=== PATIENT | female | born 1995 | race Caucasian/White ===

== ENCOUNTER 2017-01-28 13:14 | Emergency (ER) | payer MEDICAID, OTHER ==
[~2017-01-28] VITALS: Ht 167.6 cm; Wt 67.0 kg
[~2017-01-28 13:14] MED LIST: FERR1TAB36 PO; NORE1TAB60 PO
[2017-01-28 13:16] VITALS: BP 125/90; PULSE 68; RESP 20; TEMP 97.7; O2SAT 98
[2017-01-28 13:30] VITALS: BP 113/89; PULSE 73; RESP 17; O2SAT 99
--- NOTE | 2017-01-28 13:38 | PD ---
HPI Chief Complaint: Tuck Pointer Problem/Complaint Time Seen by Provider: 13:38 Travel History International Travel<30 days: No Contact w/Intl Traveler<30days: No Traveled to known affect area: No History of Present Illness HPI 21-year-old female presents to the emergency Department with complaints of continued intermittent vaginal bleeding since July. Reports no days of bleeding, lady's bleeding, and it is bleeding. Woke up this morning with heavy bleeding which has lightened now. She was seen in September for retained tampon and vaginal bleeding, and was given a prescription for control to help control the vaginal bleeding. She said she did not want to start the control and she threw the prescriptions away. She has not followed up outpatient since being seen last. She reports feeling weak and fatigued. Denies fever, chills, nausea, vomiting, abdominal pain. Denies shortness of breath or chest pain. Denies vaginal discharge, odor, itch, lesions. Reports pelvic cramping that is intermittent; denies at this time. Denies dysuria. Unknown if . Denies exposure to STDs. Using condoms intermittently for contraception. History of thalassemia. No known allergies. No established primary care provider. [facility] Past Medical History Anemia: Yes Immunizations Current: Yes Influenza Vaccination: No ?: Unknown Past Surgical History Surgical History: No Previous Surgery Social History Alcohol Use: Yes (SOCIALLY) Tobacco Use: Yes Substance Use: Yes (MARIJUANA) Allergies-Medications (Allergen,Severity, Reaction): Coded Allergies: No Known Allergies (Unverified , 01/28/17) Reported Meds & Prescriptions Reported Meds & Active Scripts Active Provera (Medroxyprogesterone Acetate) 10 Mg Tab 10 Mg PO DAILY 10 Days Start day 16 Iron (Ferrous Sulfate) 325 Mg Tab 325 Mg PO DAILY Take Review of Systems Except as stated in HPI: all other systems reviewed are Neg Physical Exam Narrative GENERAL: Well-nourished, well-developed female patient, in no acute distress, ambulatory SKIN: Warm and dry. HEAD: Atraumatic. Normocephalic. EYES: Pupils equal and round. No scleral icterus. No injection or drainage. ENT: Mucous membranes pink and moist. NECK: Trachea midline. No lymphadenopathy. CARDIOVASCULAR: Regular rate and rhythm. No murmur appreciated. RESPIRATORY: No accessory muscle use. Clear to auscultation. Breath sounds equal bilaterally. GASTROINTESTINAL: Abdomen soft, non-tender, nondistended. Bilateral pelvic region nontender to palpation. Hepatic and splenic margins not palpable. No guarding, rigidity, rebound tenderness. GENITAL: No vaginal lesions noted. Dark red blood noted at the vagina. BACK: No CVA tenderness. MUSCULOSKELETAL: No obvious deformities. No clubbing. No cyanosis. No edema. NEUROLOGICAL: Awake and alert. No obvious cranial nerve deficits. Motor grossly within normal limits. Normal speech. PSYCHIATRIC: Appropriate mood and affect; insight and judgment normal. Data Data Last Documented VS Vital Signs Date Time Temp Pulse Resp B/P Pulse Ox O2 Delivery O2 Flow Rate FiO2 01/28/17 13:30 73 17 113/89 99 Room Air 01/28/17 13:16 97.7 Orders Complete Blood Count With Diff (01/28/17 13:38) Prothrombin Time / Inr (Pt) (01/28/17 13:38) Act Partial Throm Time (Ptt) (01/28/17 13:38) Ed Urine Pregnancytest Poc (01/28/17 13:38) Sodium Chlor 0.9% 1000 Ml Inj (Ns 1000 M (01/28/17 14:09) Labs Laboratory Tests Test 01/28/17 13:55 White Blood Count 10.1 TH/MM3 Red Blood Count 4.33 MIL/MM3 Hemoglobin 13.3 GM/DL Hematocrit 39.1 % Mean Corpuscular Volume 90.4 FL Mean Corpuscular Hemoglobin 30.7 PG Mean Corpuscular Hemoglobin 34.0 % Concent Red Cell Distribution Width 13.6 % Platelet Count 219 TH/MM3 Mean Platelet Volume 8.7 FL Neutrophils (%) (Auto) 59.4 % Lymphocytes (%) (Auto) 31.8 % Monocytes (%) (Auto) 7.8 % Eosinophils (%) (Auto) 0.6 % Basophils (%) (Auto) 0.4 % Neutrophils # (Auto) 6.0 TH/MM3 Lymphocytes # (Auto) 3.2 TH/MM3 Monocytes # (Auto) 0.8 TH/MM3 Eosinophils # (Auto) 0.1 TH/MM3 Basophils # (Auto) 0.0 TH/MM3 CBC Comment DIFF FINAL Differential Comment Prothrombin Time 10.7 SEC Prothromb Time International 1.0 RATIO Ratio Activated Partial 26.6 SEC Thromboplast Time MDM Medical Decision Making Medical Screen Exam Complete: Yes Emergency Medical Condition: Yes Medical Record Reviewed: Yes Differential Diagnosis Dysmenorrhea, menorrhagia, vaginal bleeding Narrative Course 21-year-old female with vaginal bleeding since July. She was previously seen in September for retained tampon and was given perception for control to control the bleeding, which the patient never filled and threw away. She has not followed up outpatient. Has history of anemia. Does not take iron as she is supposed to. Urine negative. IV started obtained. Patient placed on cardiopulmonary monitor. 1 L normal saline fluid bolus ordered. CBC , coags ordered. The plan is to treat the patient outpatient with 10 days of Provera. Patient denies tobacco use. 1419: CBC and coags unremarkable. Provera prescribed for home. Instructed patient to follow up with gynecology. Patient verbalizes understanding and agreement with treatment plan. Patient is medically cleared and stable for discharge. Discussed reasons to return to the emergency department. Instructed patient to follow up with primary care provider. Patient agrees with treatment plan. The patients vital signs are stable and the patient is stable for outpatient follow-up and treatment. Patient discharged home, stable and in no acute distress. 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 Logistics Coordinator Primary Care Physician Patient Instructions: Dysmenorrhea (ED), General Instructions, Menorrhagia (ED) Departure Forms: Tests/Procedures, Work Release Enter return to work date: Jan 29, 2017 Additional Instructions: Take Provera as prescribed Follow-up with gynecology Follow-up with primary care provider Return to the emergency department immediately with worsening of symptoms Med/Other Pt SpecificInfo: Prescription(s) given Scripts Medroxyprogesterone Acetate (Provera)10 Mg Tab10 Mg PO DAILY 10 Days Ref 0 Start day 16 Prov:Carline Harper 01/28/17 Disposition: 01 DISCHARGE HOME Condition: Stable Carline Harper Jan 28, 2017 13:38
[2017-01-28] MEDS ORDERED: PROV10TA PO (13:59)
[2017-01-28 14:06] LABS: BASOPHIL % 0.4 % (0.0-2.0); EOSINOPHIL # 0.1 TH/MM3 (0-0.4); EOSINOPHIL % 0.6 % (0.0-4.0); HEMATOCRIT 39.1 % (35.0-46.0); HEMO FLAGS DIFF FINAL; LYMPH % 31.8 % (9.0-44.0); LYMPHOCYTE # 3.2 TH/MM3 (1.0-4.8); MEAN CELL VOLUME 90.4 FL (80.0-100.0); MEAN CORPUSCULAR HEMOGLOBIN 30.7 PG (27.0-34.0); MONO % 7.8 % (0.0-8.0); NEUT % 59.4 % (16.0-70.0); PLATELET COUNT 219 TH/MM3 (150-450); RED BLOOD COUNT 4.33 MIL/MM3 (4.00-5.30); RED CELL DISTRIBUTION WIDTH 13.6 % (11.6-17.2); WHITE BLOOD COUNT 10.1 TH/MM3 (4.0-11.0)
[2017-01-28] MEDS ORDERED: SODIUM CHLOR 0.9% 1000 ML INJ 1,000 ML IV SCH (14:09)
[2017-01-28 14:16] LABS: APTT (PATIENT) 26.6 SEC (24.3-30.1); PROTHROMBIN TIME - PATIENT 10.7 SEC (9.8-11.6)
== END 2017-01-28 15:49 | disposition home or self-care (01) ==
LOC: NEPA 13:14
DX: N93.9 Abnormal uterine and vaginal bleeding, unspecified (principal); D64.9 Anemia, unspecified; Z72.0 Tobacco use; F12.10 Cannabis abuse, uncomplicated
CPT/HCPCS: 84703; 85025; 85610; 85730; 96360; 96361; 99284; J7030

== ENCOUNTER 2017-06-20 12:45 | Emergency (ER) | payer SELFPAY ==
[~2017-06-20] VITALS: Ht 167.6 cm; Wt 65.0 kg
[~2017-06-20 12:45] MED LIST changes: -NORE1TAB60 PO; +PROV10TA PO
[2017-06-20 12:47] VITALS: BP 132/72; PULSE 65; RESP 16; TEMP 98.4; O2SAT 100
--- NOTE | 2017-06-20 13:37 | PD ---
Physical Exam Time Seen by Provider: 13:32 Narrative 21yo F c/o lower abd cramping/pain and vaginal bleeding since this morning. Reports spotting for about one month; doesn't not know when actual LMP was. + nausea w/o vomiting. Denies fever. Hx of vaginal bleeding and took Provera. Hx of retained FB. Patient seen in triage. VS reviewed. Patient awaiting bed placement. Data Data Last Documented VS Vital Signs Date Time Temp Pulse Resp B/P Pulse Ox O2 Delivery O2 Flow Rate FiO2 06/20/17 12:47 98.4 65 16 132/72 100 MDM Supervised Visit with NATHALIA: Carline Coello Jun 20, 2017 13:37
== END 2017-06-20 15:28 | disposition left against medical advice (07) ==
LOC: NED 12:45
DX: R10.30 Lower abdominal pain, unspecified (principal)
CPT/HCPCS: 99281

== ENCOUNTER 2017-06-22 11:26 | Emergency (ER) | payer MEDICAID ==
[~2017-06-22] VITALS: Ht 167.6 cm; Wt 66.5 kg
[2017-06-22 11:28] VITALS: BP 129/74; PULSE 61; RESP 14; TEMP 98.2; O2SAT 99
[2017-06-22] MEDS ORDERED: ONDANSETRON HCL 4 MG/2 ML VIAL IVP ONE (11:45)
[2017-06-22] MEDS ORDERED: MORPHINE SULFATE 4 MG/ML INJ IV PUSH ONE (11:45)
[2017-06-22] MEDS ORDERED: SODIUM CHLORID 0.9% 500 ML INJ 500 ML IV ONE (11:45)
[2017-06-22] MEDS ORDERED: KETOROLAC TROMETHAMINE 30 MG/ML (IVP) VIAL IV PUSH ONE (11:45)
--- NOTE | 2017-06-22 11:49 | PD ---
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 The patient has a history of abnormal vaginal bleeding that started in April 2016 after she started Depo-Provera. The patient discontinued Depakote treatment of July 2016 and has had abnormal vaginal bleeding with occasional spotting. The patient states she was spotting 2 weeks ago, had no bleeding for 2 weeks, and then woke up today with lower abdominal pain, cramping, and heavy vaginal bleeding which she describes as dark red blood with visible clots. She is sexually active, denies . The patient states she was treated a short time ago with Provera for breakthrough vaginal bleeding. She does have a history of mild anemia and thalassemia. The patient does not currently have a director corporate. She denies any fever, chills, sweats, nausea, vomiting, or dysuria. She denies any concurrent vaginal discharge. [facility] Past Medical History Anemia: Yes Immunizations Current: Yes ?: Unknown LMP: 06/22/17 Social History Alcohol Use: No Tobacco Use: No Substance Use: No Allergies-Medications (Allergen,Severity, Reaction): Coded Allergies: No Known Allergies (Unverified , 01/28/17) Reported Meds & Prescriptions Reported Meds & Active Scripts Active Provera (Medroxyprogesterone Acetate) 10 Mg Tab 10 Mg PO DAILY 10 Days Start day 16 Iron (Ferrous Sulfate) 325 Mg Tab 325 Mg PO DAILY Take Review of Systems Except as stated in HPI: all other systems reviewed are Neg General / Constitutional: No: Fever HENT: No: Lightheadedness Cardiovascular: No: Chest Pain or Discomfort, Dyspnea on exertion Respiratory: No: Shortness of Breath Gastrointestinal: No: Nausea, Vomiting, Abdominal Pain Genitourinary: Positive: Pelvic Pain, Dysmenorrhea, Menorrhagia, Metorrhagia, Vaginal Bleeding Skin: No Rash Physical Exam Narrative GENERAL: Awake, alert, pleasant 21-year-old female who appears her stated age and is in no acute respiratory distress. SKIN: Focused skin assessment warm/dry. HEAD: Atraumatic. Normocephalic. EYES: No injection or drainage. ENT: No nasal bleeding or discharge. Mucous membranes pink and moist. NECK: Trachea midline. No JVD. CARDIOVASCULAR: Regular rate and rhythm. No murmur appreciated. RESPIRATORY: No accessory muscle use. Clear to auscultation. Breath sounds equal bilaterally. GASTROINTESTINAL: Abdomen soft, minimal suprapubic tenderness. Back: No CVA tenderness. Genitourinary: The exam was performed in the presence of a female nurse. External examination reveals no rashes or lesions. Speculum examination reveals scant brown to yellow discharge in the vaginal vault. Wet prep and gonorrhea/chlamydia were sent to lab. Cervical os is closed. No cervical motion tenderness or adnexal tenderness. MUSCULOSKELETAL: No obvious deformities. No clubbing. No cyanosis. No edema. NEUROLOGICAL: Awake and alert. No obvious cranial nerve deficits. Motor grossly within normal limits. Normal speech. PSYCHIATRIC: Appropriate mood and affect; insight and judgment normal. Data Data Last Documented VS Vital Signs Date Time Temp Pulse Resp B/P Pulse Ox O2 Delivery O2 Flow Rate FiO2 06/22/17 11:28 98.2 61 14 129/74 99 Orders Complete Blood Count With Diff (06/22/17 11:42) Urinalysis - C+S If Indicated (06/22/17 11:42) Ondansetron Inj (Zofran Inj) (06/22/17 11:45) Ed Urine Pregnancytest Poc (06/22/17 11:42) Morphine Inj (Morphine Inj) (06/22/17 11:45) Ketorolac Inj (Toradol Inj) (06/22/17 11:45) Sodium Chlorid 0.9% 500 Ml Inj (Ns 500 M (06/22/17 11:45) Gc And Chlamydia Pcr (06/22/17 12:09) Wet Prep Profile (06/22/17 12:09) Labs Laboratory Tests Test 06/22/17 06/22/17 11:40 12:05 White Blood Count 7.1 TH/MM3 Red Blood Count 4.61 MIL/MM3 Hemoglobin 14.5 GM/DL Hematocrit 43.3 % Mean Corpuscular Volume 93.8 FL Mean Corpuscular Hemoglobin 31.5 PG Mean Corpuscular Hemoglobin 33.6 % Concent Red Cell Distribution Width 13.6 % Platelet Count 200 TH/MM3 Mean Platelet Volume 8.7 FL Neutrophils (%) (Auto) 54.7 % Lymphocytes (%) (Auto) 34.3 % Monocytes (%) (Auto) 9.1 % Eosinophils (%) (Auto) 1.4 % Basophils (%) (Auto) 0.5 % Neutrophils # (Auto) 3.9 TH/MM3 Lymphocytes # (Auto) 2.4 TH/MM3 Monocytes # (Auto) 0.6 TH/MM3 Eosinophils # (Auto) 0.1 TH/MM3 Basophils # (Auto) 0.0 TH/MM3 CBC Comment DIFF FINAL Differential Comment Urine Color YELLOW Urine Turbidity HAZY Urine pH 6.5 Urine Specific [place] 1.023 Urine Protein TRACE mg/dL Urine Glucose (UA) NEG mg/dL Urine Ketones NEG mg/dL Urine Occult Blood MOD Urine Nitrite NEG Urine Bilirubin NEG Urine Urobilinogen LESS THAN 2.0 MG/DL Urine Leukocyte Esterase MOD Urine RBC 2 /hpf Urine WBC 4 /hpf Urine Squamous Epithelial 11 /hpf Cells Urine Mucus FEW /lpf Microscopic Urinalysis Comment CULT NOT INDICATED Clue Cells (Wet Prep) PRESENT Vaginal Trichomonas (Wet Prep) NONE SEEN Vaginal Yeast (Wet Prep) NONE SEEN MDM Medical Decision Making Medical Screen Exam Complete: Yes Emergency Medical Condition: Yes Medical Record Reviewed: Yes Interpretation(s) Laboratory Tests Test 06/22/17 06/22/17 11:40 12:05 White Blood Count 7.1 TH/MM3 Red Blood Count 4.61 MIL/MM3 Hemoglobin 14.5 GM/DL Hematocrit 43.3 % Mean Corpuscular Volume 93.8 FL Mean Corpuscular Hemoglobin 31.5 PG Mean Corpuscular Hemoglobin 33.6 % Concent Red Cell Distribution Width 13.6 % Platelet Count 200 TH/MM3 Mean Platelet Volume 8.7 FL Neutrophils (%) (Auto) 54.7 % Lymphocytes (%) (Auto) 34.3 % Monocytes (%) (Auto) 9.1 % Eosinophils (%) (Auto) 1.4 % Basophils (%) (Auto) 0.5 % Neutrophils # (Auto) 3.9 TH/MM3 Lymphocytes # (Auto) 2.4 TH/MM3 Monocytes # (Auto) 0.6 TH/MM3 Eosinophils # (Auto) 0.1 TH/MM3 Basophils # (Auto) 0.0 TH/MM3 CBC Comment DIFF FINAL Differential Comment Urine Color YELLOW Urine Turbidity HAZY Urine pH 6.5 Urine Specific [place] 1.023 Urine Protein TRACE mg/dL Urine Glucose (UA) NEG mg/dL Urine Ketones NEG mg/dL Urine Occult Blood MOD Urine Nitrite NEG Urine Bilirubin NEG Urine Urobilinogen LESS THAN 2.0 MG/DL Urine Leukocyte Esterase MOD Urine RBC 2 /hpf Urine WBC 4 /hpf Urine Squamous Epithelial 11 /hpf Cells Urine Mucus FEW /lpf Microscopic Urinalysis Comment CULT NOT INDICATED Clue Cells (Wet Prep) PRESENT Vaginal Trichomonas (Wet Prep) NONE SEEN Vaginal Yeast (Wet Prep) NONE SEEN Differential Diagnosis Differential diagnosis includes dysmenorrhea, dysfunctional uterine bleeding, , ectopic , vaginal bleeding. Narrative Course IV was established, labs were drawn and sent, and the patient was placed on cardiac telemetry monitoring and continuous pulse oximetry monitoring. Bedside UA test was obtained. CBC was sent to lab. A pelvic exam was completed in the presence of a female nurse. Wet prep and gonorrhea/chlamydia PCR were sent to lab. Bedside UA test was negative. Hemoglobin is within normal limits. Wet prep is positive for clue cells, patient will be treated for bacterial vaginosis. Patient is stable for outpatient follow-up with a director corporate. Diagnosis Primary Impression: Bacterial vaginosis Additional Impression: Vaginal bleeding Patient Instructions: General Instructions Additional Instructions: Medications as directed. Follow-up with her director corporate. Return if symptoms worsen or progress. No drinking alcohol while taking Flagyl. Med/Other Pt SpecificInfo: Prescription(s) given Scripts Ibuprofen 600 Mg [id number] Mg PO Q6H PRN (Pain/Inflammation) #20 TAB Ref 0 Prov:Sherwin Suarez MD 06/22/17 Metronidazole (Flagyl)500 Mg [id number] Mg PO BID 7 Days Ref 0 Prov:Sherwin Suarez MD 06/22/17 Disposition: 01 DISCHARGE HOME Condition: Stable Sherwin Suarez MD Jun 22, 2017 11:49
[2017-06-22 12:06] LABS: AUTOMATED NEUTROPHIL # 3.9 TH/MM3 (1.8-7.7); BASOPHIL % 0.5 % (0.0-2.0); EOSINOPHIL # 0.1 TH/MM3 (0-0.4); EOSINOPHIL % 1.4 % (0.0-4.0); HEMATOCRIT 43.3 % (35.0-46.0); HEMO FLAGS DIFF FINAL; LYMPH % 34.3 % (9.0-44.0); LYMPHOCYTE # 2.4 TH/MM3 (1.0-4.8); MEAN CELL VOLUME 93.8 FL (80.0-100.0); MEAN CORPUSCULAR HEMOGLOBIN 31.5 PG (27.0-34.0); MEAN CORPUSCULAR HGB CONC 33.6 % (32.0-36.0); MONO % 9.1 % (0.0-8.0); NEUT % 54.7 % (16.0-70.0); PLATELET COUNT 200 TH/MM3 (150-450); RED BLOOD COUNT 4.61 MIL/MM3 (4.00-5.30); RED CELL DISTRIBUTION WIDTH 13.6 % (11.6-17.2); WHITE BLOOD COUNT 7.1 TH/MM3 (4.0-11.0)
[2017-06-22 12:14] LABS: BLOOD, URINE MOD (NEG); COMMENT (UR) CULT NOT INDICATED; CULTURE IF INDICATED CULT NOT INDICATED; GLUCOSE,URINE NEG (NEG); KETONE, URINE NEG (NEG); MUCUS URINE FEW /lpf (OCC); NITRITE,URINE NEG (NEG); PH, URINE 6.5 (5.0-8.5); SQUAMOUS EPITHELIAL CELL URINE 11 /hpf (0-5); URINE COLOR YELLOW (YELLW/STRAW)
[2017-06-22] MEDS ORDERED: IBUP-232 PO (12:49)
[2017-06-22] MEDS ORDERED: METR-1 PO (12:49)
[2017-06-22 15:45] LABS: CHLAMYDIA PCR NOT DETECTED (NOT DETECT); NEISSERIA PCR NOT DETECTED (NOT DETECT)
== END 2017-06-22 13:17 | disposition home or self-care (01) ==
LOC: NEPD 11:26
DX: N76.0 Acute vaginitis (principal); N93.9 Abnormal uterine and vaginal bleeding, unspecified
CPT/HCPCS: 81001; 84703; 85025; 87210; 87491; 87591; 96374; 96375; 99284; J1885; J2405; J7040

== ENCOUNTER 2017-07-21 15:50 | Emergency (ER) | payer MEDICAID ==
[~2017-07-21] VITALS: Ht 167.6 cm; Wt 65.0 kg
[~2017-07-21 15:50] MED LIST changes: +IBUP-232 PO; +METR-1 PO
[2017-07-21 15:52] VITALS: BP 134/63; PULSE 71; RESP 14; TEMP 97.8; O2SAT 100
--- NOTE | 2017-07-21 16:01 | PD ---
HPI Chief Complaint: Fall Time Seen by Provider: 16:00 Travel History International Travel<30 days: No Contact w/Intl Traveler<30days: No Traveled to known affect area: No History of Present Illness HPI 21-year-old female presents the emergency department via POV status post fall this morning. Patient states she got up from sleeping and felt dizzy and fell bumping her left anterior lateral thigh. She currently does not feel dizzy or weak at this time. She is complaining of left lower back pain now that extends into the left hip and lower leg. Patient has no history of this in the past. Patient's last menstrual period was June 26. She denies . She has a history of beta thalassemia. No other injury is reported. She denies headache, neck pain, or other pain. Back pain is approximately 6 out of 10. It is worse with movement and ambulation. She has no known drug allergies. PFSH Past Medical History Anemia: Yes Immunizations Current: Yes ?: Not Social History Alcohol Use: No Tobacco Use: No Substance Use: No Allergies-Medications (Allergen,Severity, Reaction): Coded Allergies: No Known Allergies (Unverified , 01/28/17) Reported Meds & Prescriptions Reported Meds & Active Scripts Active Flexeril (Cyclobenzaprine HCl) 10 Mg Tab 10 Mg PO TID Ibuprofen 600 Mg Tab 600 Mg PO Q6H PRN Review of Systems Except as stated in HPI: all other systems reviewed are Neg General / Constitutional: No: Fever Eyes: No: Visual changes HENT: Positive: Lightheadedness, No: Headaches, Vertigo, Sore Throat, Rhinitis , Rhinorrhea Cardiovascular: No: Chest Pain or Discomfort Respiratory: No: Shortness of Breath Gastrointestinal: No: Nausea, Vomiting, Diarrhea, Abdominal Pain Genitourinary: No: Urgency, Frequency, Dysuria Musculoskeletal: Positive: Myalgias (see history present illness), Pain Skin: No Rash Neurologic: Positive: Dizziness, Syncope (near syncope this morning.), No: Weakness, Focal Abnormalities, Coordination Problem Psychiatric: No: Depression Endocrine: No: Polydipsia Hematologic/Lymphatic: No: Easy Bruising Physical Exam Narrative GENERAL: Patient appears in mild distress due to her back pain SKIN: Warm and dry. Patient is noted to have a superficial abrasion with ecchymosis to the left anterior lateral distal thigh. Patient has multiple old small bruises to the lower extremities as well which she states are common. HEAD: Atraumatic. Normocephalic. Nontender. EYES: Pupils equal and round. No scleral icterus. No injection or drainage. ENT: No nasal bleeding or discharge. Mucous membranes pink and moist. Pharynx is clear. Airway is patent. NECK: Trachea midline. Supple and nontender. CARDIOVASCULAR: Regular rate and rhythm. RESPIRATORY: No accessory muscle use. Clear to auscultation. Breath sounds equal bilaterally. GASTROINTESTINAL: Abdomen soft, non-tender, nondistended. Hepatic and splenic margins not palpable. MUSCULOSKELETAL: Extremities without clubbing, cyanosis, or edema. No obvious deformities. Patient is generalized soft tissue tenderness along the left lower lumbar region extending into the sacroiliac region. Question of straight leg raise pain on the left. No Weakness is noted in the lower extremities. There is no bony tenderness in the lumbar spine. NEUROLOGICAL: Awake and alert. No obvious cranial nerve deficits. Motor grossly within normal limits. Five out of 5 muscle strength in the arms and legs. Normal speech. PSYCHIATRIC: Appropriate mood and affect; insight and judgment normal. Data Data Last Documented VS Vital Signs Date Time Temp Pulse Resp B/P (MAP) Pulse Ox O2 Delivery O2 Flow Rate FiO2 07/21/17 17:41 16 07/21/17 16:18 68 115/80 (92) 100 Room Air 07/21/17 15:52 97.8 Orders Orders Electrocardiogram (07/21/17 16:10) Ed Urine Pregnancytest Poc (07/21/17 16:10) Complete Blood Count With Diff (07/21/17 16:10) Comprehensive Metabolic Panel (07/21/17 16:10) Urinalysis - C+S If Indicated (07/21/17 16:10) Ecg Monitoring (07/21/17 16:10) Iv Access Insert/Monitor (07/21/17 16:10) Oximetry (07/21/17 16:10) Sodium Chloride 0.9% Flush (Ns Flush) (07/21/17 16:15) Sodium Chlor 0.9% 1000 Ml Inj (Ns 1000 M (07/21/17 16:10) Orthostatic Vital Signs (07/21/17 16:10) Ketorolac Inj (Toradol Inj) (07/21/17 16:15) Labs Laboratory Tests Test 07/21/17 16:20 07/21/17 16:30 White Blood Count 9.0 TH/MM3 Red Blood Count 4.40 MIL/MM3 Hemoglobin 13.8 GM/DL Hematocrit 40.9 % Mean Corpuscular Volume 92.9 FL Mean Corpuscular Hemoglobin 31.4 PG Mean Corpuscular Hemoglobin Concent 33.8 % Red Cell Distribution Width 13.9 % Platelet Count 207 TH/MM3 Mean Platelet Volume 9.6 FL Neutrophils (%) (Auto) 58.3 % Lymphocytes (%) (Auto) 32.6 % Monocytes (%) (Auto) 7.8 % Eosinophils (%) (Auto) 0.8 % Basophils (%) (Auto) 0.5 % Neutrophils # (Auto) 5.3 TH/MM3 Lymphocytes # (Auto) 2.9 TH/MM3 Monocytes # (Auto) 0.7 TH/MM3 Eosinophils # (Auto) 0.1 TH/MM3 Basophils # (Auto) 0.0 TH/MM3 CBC Comment DIFF FINAL Differential Comment Blood Urea Nitrogen 14 MG/DL Creatinine 0.89 MG/DL Random Glucose 83 MG/DL Total Protein 6.7 GM/DL Albumin 3.5 GM/DL Calcium Level 8.4 MG/DL Alkaline Phosphatase 52 U/L Aspartate Amino Transf (AST/SGOT) 15 U/L Alanine Aminotransferase (ALT/SGPT) 32 U/L Total Bilirubin 1.1 MG/DL Sodium Level 141 MEQ/L Potassium Level 3.7 MEQ/L Chloride Level 106 MEQ/L Carbon Dioxide Level 26.6 MEQ/L Anion Gap 8 MEQ/L Estimat Glomerular Filtration Rate 82 ML/MIN Urine Color YELLOW Urine Turbidity CLEAR Urine pH 6.0 Urine Specific [place] 1.029 Urine Protein TRACE mg/dL Urine Glucose (UA) NEG mg/dL Urine Ketones NEG mg/dL Urine Occult Blood SMALL Urine Nitrite NEG Urine Bilirubin NEG Urine Urobilinogen 2.0 MG/DL Urine Leukocyte Esterase NEG Urine RBC 2 /hpf Urine WBC 1 /hpf Urine Squamous Epithelial Cells 4 /hpf Urine Mucus FEW /lpf Microscopic Urinalysis Comment CULT NOT INDICATED MDM Medical Decision Making Medical Screen Exam Complete: Yes Emergency Medical Condition: Yes Differential Diagnosis Near-syncope. Anemia. Lumbar strain. Sciatica. Narrative Course Patient is medically stable at time of exam. Labs ordered including CBC, CMP, urinalysis, urine test. Orthostatic vital signs are taken. Patient is given 1000 mg normal saline bolus as well as 30 mg Toradol IV. Orthostatic vitals are normal. Labs are all within normal limits. Patient is not . Patiently treated with ibuprofen 600 mg 4 times a day #40. Patient also given Flexeril 10 mg up to 3 times daily #15. Patient take extra strength Tylenol as well. Patient follow-up with local primary care physician or return to emergency department as needed. Diagnosis Primary Impression: Near syncope Additional Impression: Acute lumbar myofascial strain Qualified Codes: S39.012A - Strain of muscle, fascia and tendon of lower back , initial encounter Referrals: [facility] [place] Patient Instructions: General Instructions, Low Back Strain (ED), Lower Back Exercises (ED) Additional Instructions: Orthostatic vitals are normal. Labs are all within normal limits. Patient is not . Patiently treated with ibuprofen 600 mg 4 times a day #40. Patient also given Flexeril 10 mg up to 3 times daily #15. Patient take extra strength Tylenol as well. Patient follow-up with local primary care physician or return to emergency department as needed. Scripts Cyclobenzaprine (Flexeril) 10 Mg Tab 10 MG PO TID for Muscle Spasm, #15 TAB 0 Refills Prov: Jose Aly MD 07/21/17 Ibuprofen (Ibuprofen) 600 Mg Tab 600 MG PO Q6H Y for Pain/Inflammation, #40 TAB 0 Refills Prov: Jose Aly MD 07/21/17 Disposition: 01 DISCHARGE HOME Condition: Stable Yusuf Montoya Jul 21, 2017 16:01
[2017-07-21] MEDS ORDERED: SODIUM CHLOR 0.9% 1000 ML INJ 1,000 ML IV ONE (16:10)
[2017-07-21] MEDS ORDERED: SODIUM CHLORIDE 0.9% FLUSH 10 ML FLUSH IVF PRN (16:15)
[2017-07-21] MEDS ORDERED: KETOROLAC TROMETHAMINE 30 MG/ML (IVP) VIAL IV PUSH ONE (16:15)
[2017-07-21 16:18] VITALS: BP_SYST 110; BP_SYST 115; BP_DIAS 80; BP_DIAS 82; PULSE 68; RESP 18; O2SAT 100
[2017-07-21 17:06] LABS: AUTOMATED NEUTROPHIL # 5.3 TH/MM3 (1.8-7.7); BASOPHIL % 0.5 % (0.0-2.0); EOSINOPHIL # 0.1 TH/MM3 (0-0.4); EOSINOPHIL % 0.8 % (0.0-4.0); HEMATOCRIT 40.9 % (35.0-46.0); HEMO FLAGS DIFF FINAL; LYMPH % 32.6 % (9.0-44.0); LYMPHOCYTE # 2.9 TH/MM3 (1.0-4.8); MEAN CELL VOLUME 92.9 FL (80.0-100.0); MEAN CORPUSCULAR HEMOGLOBIN 31.4 PG (27.0-34.0); MEAN CORPUSCULAR HGB CONC 33.8 % (32.0-36.0); MONO % 7.8 % (0.0-8.0); NEUT % 58.3 % (16.0-70.0); PLATELET COUNT 207 TH/MM3 (150-450); RED CELL DISTRIBUTION WIDTH 13.9 % (11.6-17.2)
[2017-07-21 17:12] LABS: BLOOD, URINE SMALL (NEG); GLUCOSE,URINE NEG (NEG); KETONE, URINE NEG (NEG); MUCUS URINE FEW /lpf (OCC); NITRITE,URINE NEG (NEG); SQUAMOUS EPITHELIAL CELL URINE 4 /hpf (0-5); URINE COLOR YELLOW (YELLW/STRAW)
[2017-07-21 17:13] LABS: COMMENT (UR) CULT NOT INDICATED; CULTURE IF INDICATED CULT NOT INDICATED
[2017-07-21 17:24] LABS: ALT (GPT) 32 U/L (9-42); ANION GAP 8 MEQ/L (5-15); AST (GOT) 15 U/L (16-38); BICARBONATE 26.6 MEQ/L (21.0-32.0); BLOOD UREA NITROGEN 14 MG/DL (7-18); CHLORIDE 106 MEQ/L (98-107); GLOMERULAR FILTRATION RATE 82 ML/MIN (>89); POTASSIUM 3.7 MEQ/L (3.5-5.1); SODIUM (NA) 141 MEQ/L (136-145)
[2017-07-21 17:27] LABS: ALKALINE PHOSPHATASE 52 U/L (45-117); TOTAL BILIRUBIN ADULT 1.1 MG/DL (0.2-1.0)
[2017-07-21 17:41] VITALS: RESP 16
[2017-07-21] MEDS ORDERED: CYCL1TAB29 PO (18:03)
[2017-07-21] MEDS ORDERED: IBUP-232 PO (18:03)
[2017-07-21 18:32] VITALS: BP 117/78
--- NOTE | 2017-07-22 09:22 | EKG ---
Date Performed: 07/21/2017 Time Performed: 17:14:44 PTAGE: 21 years EKG: SINUS BRADYCARDIA BORDERLINE ECG NO PREVIOUS TRACING DOCTOR: Jose Saldivar Interpretating Date/Time 07/22/2017 09:20:56
== END 2017-07-21 18:34 | disposition home or self-care (01) ==
LOC: NEPC 15:50
DX: R55 Syncope and collapse (principal); S39.012A Strain of muscle, fascia and tendon of lower back, initial encounter; W19.XXXA Unspecified fall, initial encounter
CPT/HCPCS: 80053; 81001; 84703; 85025; 93005; 96361; 96374; 99284; J1885; J7030

== ENCOUNTER 2017-07-24 14:53 | Emergency (ER) | payer SELFPAY ==
[~2017-07-24] VITALS: Ht 167.6 cm; Wt 67.0 kg
[~2017-07-24 14:53] MED LIST changes: +CYCL1TAB29 PO; -FERR1TAB36 PO; -METR-1 PO; -PROV10TA PO
[2017-07-24 14:54] VITALS: BP 116/65; PULSE 63; RESP 15; TEMP 98.4; O2SAT 98
--- NOTE | 2017-07-24 16:55 | PD ---
HPI Chief Complaint: Back/ Neck Pain or Injury Time Seen by Provider: 16:51 Travel History International Travel<30 days: No Contact w/Intl Traveler<30days: No Traveled to known affect area: No History of Present Illness HPI 20-year-old female presents to the emergency department requesting to need work released after being diagnosed and treated for left-sided low back strain on July 21. She was released from work until yesterday and needs more time off. She denies encopresis, incontinence, saddle anesthesias. Denies IV drug use, cancer. Denies fever, vomiting, abdominal pain, dysuria. Denies paresthesias, loss of sensation, decreased range of motion, decreased strength to bilateral lower extremities. Taking ibuprofen and Flexeril as prescribed for symptom management. Pain is aggravated with palpation and movement. Has no other medical complaints. No known allergies. No other modifying factors or associated signs and symptoms. History Past Medical Histgory LMP: 06/2017 Social History Alcohol Use: No Tobacco Use: No Allergies-Medications (Allergen,Severity, Reaction): Coded Allergies: No Known Allergies (Unverified , 01/28/17) Reported Meds & Prescriptions Reported Meds & Active Scripts Active Flexeril (Cyclobenzaprine HCl) 10 Mg Tab 10 Mg PO TID Ibuprofen 600 Mg Tab 600 Mg PO Q6H PRN Review of Systems Except as stated in HPI: all other systems reviewed are Neg Physical Exam Narrative GENERAL: Well-nourished, well-developed female patient, in no acute distress; afebrile, nontoxic-appearing SKIN: Warm and dry. HEAD: Atraumatic. Normocephalic. EYES: Pupils equal and round. No scleral icterus. No injection or drainage. ENT: Mucosa pink and moist. Airway patent. NECK: Trachea midline. CARDIOVASCULAR: Regular rate. RESPIRATORY: No accessory muscle use. GASTROINTESTINAL: Flat. MUSCULOSKELETAL: Bilateral lower extremities supple and non-tense with 2+ pedal pulses and sensory intact; with full range of motion and 5/5 strength. Active dorsiflexion and extension of bilateral feet. Left straight leg raise is negative for low back pain. Ambulatory in room with normal gait. Sitting up in bed at 90. No obvious deformities. No clubbing. No cyanosis. No edema. BACK: No midline point tenderness on palpation of the lumbar spine. Tenderness on palpation of left lumbar iliosacral area. No obvious deformities. NEUROLOGICAL: Awake and alert. Oriented 3. No obvious cranial nerve deficits. Motor grossly within normal limits. Normal speech. Moves all extremities. 5/5 strength to all extremities. Sensory intact. PSYCHIATRIC: Appropriate mood and affect; insight and judgment normal. Data Data Last Documented VS Vital Signs Date Time Temp Pulse Resp B/P (MAP) Pulse Ox O2 Delivery O2 Flow Rate FiO2 07/24/17 14:54 98.4 63 15 116/65 (82) 98 MDM Medical Screen Exam Complete: Yes Emergency Medical Condition: No Differential Diagnosis Medical clearance Narrative Course 20-year-old female requesting continued work release note after being seen on July 21 for left-sided low back strain. She was prescribed Flexeril and ibuprofen. She will provided community resources for follow-up. Vital signs are stable and the patient is stable for outpatient follow-up and treatment. The patient has no urgent or emergent medical complaints. There is no emergent or urgent medical need at this time. I instructed the patient to follow up with their primary care provider. A medical screening exam was performed: At the time of evaluation the presenting medical condition was determined not to be of an emergent nature. The patient was given the option of receiving additional care, but declined. Patient was given options for additional community resources from which to obtain care. The Patient Has Been advised to seek medical attention for their presenting complaint. The patient has been advised to return to the ER at any time if an emergent condition develops. Primary Impression: Encounter for medical screening examination Condition: Stable Carline Harper [employer]IAN Jul 24, 2017 16:55
== END 2017-07-24 16:56 | disposition left against medical advice (07) ==
LOC: NEPK 14:53
DX: S39.012D Strain of muscle, fascia and tendon of lower back, subsequent encounter (principal); X58.XXXD Exposure to other specified factors, subsequent encounter
CPT/HCPCS: 99281

== ENCOUNTER 2017-10-30 15:59 | Emergency (ER) | payer MEDICAID, OTHER ==
[~2017-10-30 15:59] MED LIST changes: +CYCL10TA PO; -CYCL1TAB29 PO
[2017-10-30 16:00] VITALS: BP 149/70; PULSE 68; RESP 16; TEMP 98.5; O2SAT 100
--- NOTE | 2017-10-30 17:19 | PD ---
HPI Chief Complaint: [place] Problem/Complaint Time Seen by Provider: 16:53 Travel History International Travel<30 days: No Contact w/Intl Traveler<30days: No Traveled to known affect area: No History of Present Illness HPI 21-year-old female presents to the emergency Department with complaint of pelvic pain, bloody urine, vaginal discharge with brown and foul smelling 3 weeks. Denies dysuria or urinary frequency. Denies change in his stool. Denies fever, vomiting, abdominal pain. Unknown exposure to STI/STD. Last menstrual period started on 10/14 and she says it has never stopped. She has not tried any medications or treatments to alleviate her symptoms. No contraception use. No known allergies. Primary care provider is unknown name. Denies significant past medical history. Has no other medical complaints. No other modifying factors or associated signs and symptoms. PFSH Past Medical History Anemia: Yes Immunizations Current: Yes ?: Not LMP: 10/17/17 Social History Alcohol Use: No Tobacco Use: No Substance Use: No Allergies-Medications (Allergen,Severity, Reaction): Coded Allergies: No Known Allergies (Unverified , 01/28/17) Reported Meds & Prescriptions Reported Meds & Active Scripts Active Flagyl (Metronidazole) 500 Mg Tab 500 Mg PO BID 7 Days Flexeril (Cyclobenzaprine HCl) 10 Mg Tab 10 Mg PO TID Ibuprofen 600 Mg Tab 600 Mg PO Q6H PRN Review of Systems Except as stated in HPI: all other systems reviewed are Neg Physical Exam Narrative GENERAL: Well-nourished, well-developed female patient, in no acute distress; afebrile, nontoxic-appearing SKIN: Warm and dry. HEAD: Atraumatic. Normocephalic. EYES: Pupils equal and round. No scleral icterus. No injection or drainage. ENT: Mucous membranes pink and moist. NECK: Trachea midline. No lymphadenopathy. CARDIOVASCULAR: Regular rate and rhythm. No murmur appreciated. RESPIRATORY: No accessory muscle use. Clear to auscultation. Breath sounds equal bilaterally. GASTROINTESTINAL: Abdomen soft, non-tender, nondistended. Bilateral pelvic region nontender to palpation. Hepatic and splenic margins not palpable. No guarding, rigidity, rebound tenderness. PELVIC: Exam done in the presence of a nurse. Speculum exam reveals retained vaginal foreign body; foreign body removed and cervix is nonedematous and nonerythematous with light brown, foul-smelling discharge. Bimanual exam reveals no palpable masses or adnexa tenderness, no uterine tenderness. No cervical motion tenderness. BACK: No CVA tenderness. MUSCULOSKELETAL: No obvious deformities. No clubbing. No cyanosis. No edema. NEUROLOGICAL: Awake and alert. No obvious cranial nerve deficits. Motor grossly within normal limits. Normal speech. PSYCHIATRIC: Appropriate mood and affect; insight and judgment normal. Data Data Last Documented VS Vital Signs Date Time Temp Pulse Resp B/P (MAP) Pulse Ox O2 Delivery O2 Flow Rate FiO2 10/30/17 16:00 98.5 68 16 149/70 (96) 100 Orders Orders Gc And Chlamydia Pcr (10/30/17 16:54) Wet Prep Profile (10/30/17 16:54) Urinalysis - C+S If Indicated (10/30/17 16:54) Ed Urine Pregnancytest Poc (10/30/17 16:54) Ed Discharge Order (10/30/17 18:46) Labs Laboratory Tests Test 10/30/17 16:50 10/30/17 17:10 Urine Color YELLOW Urine Turbidity CLEAR Urine pH 6.0 Urine Specific [place] 1.027 Urine Protein TRACE mg/dL Urine Glucose (UA) NEG mg/dL Urine Ketones NEG mg/dL Urine Occult Blood NEG Urine Nitrite NEG Urine Bilirubin NEG Urine Urobilinogen 2.0 MG/DL Urine Leukocyte Esterase NEG Urine RBC 1 /hpf Urine WBC 1 /hpf Urine Squamous Epithelial Cells 3 /hpf Urine Calcium Oxalate Crystals OCC /hpf Urine Mucus FEW /lpf Microscopic Urinalysis Comment CULT NOT INDICATED Clue Cells (Wet Prep) PRESENT Vaginal Trichomonas (Wet Prep) NONE SEEN Vaginal Yeast (Wet Prep) NONE SEEN MDM Medical Decision Making Medical Screen Exam Complete: Yes Emergency Medical Condition: Yes Medical Record Reviewed: Yes Differential Diagnosis Vaginal foreign body, bacterial vaginosis, chlamydia, gonorrhea, Trichomonas, cervicitis, UTI Narrative Course 21-year-old female with vaginal discharge and odor 3 weeks. UPT negative. Urinalysis, wet prep, chlamydia, gonorrhea ordered. 184: Positive for bacterial vaginosis. Negative Trichomonas, vaginal yeast. Urinalysis without signs of infection. Chlamydia and gonorrhea depending. I reviewed the patient's medical record and she has not been positive for chlamydia or gonorrhea in the past and I do not feel it is necessary to treat her empirically at this time. Flagyl prescribed for home. 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 Instructed patient to follow up with primary care provider. Patient verbalizes understanding and agreement with treatment plan. Patient is medically cleared and stable for discharge. Discussed reasons to return to the emergency department. Patient agrees with treatment plan. The patients vital signs are stable and the patient is stable for outpatient follow-up and treatment. Patient discharged home, stable and in no acute distress. Diagnosis Primary Impression: Vaginal foreign body Qualified Codes: T19.2XXA - Foreign body in vulva and vagina, initial encounter Referrals: [facility] Primary Care Physician Patient Instructions: Bacterial Vaginosis (ED), General Instructions, Vaginal Foreign Body (ED) Departure Forms: Tests/Procedures, Work Release Enter return to work date: Oct 31, 2017 Additional Instructions: Flagyl as prescribed Drink plenty of fluids Maintain good personal hygiene Follow-up with primary care provider Return to the emergency department immediately with worsening of symptoms Med/Other Pt SpecificInfo: Prescription(s) given Scripts Metronidazole (Flagyl) 500 Mg Tab 500 MG PO BID for Infection for 7 Days, #14 TAB 1 Refill Prov: Carline Harper 10/30/17 Disposition: 01 DISCHARGE HOME Condition: Stable Carline Harper Oct 30, 2017 17:18
[2017-10-30 17:33] LABS: BLOOD, URINE NEG (NEG); CALCIUM OXALATE CRYSTALS,URINE OCC /hpf; COMMENT (UR) CULT NOT INDICATED; CULTURE IF INDICATED CULT NOT INDICATED; GLUCOSE,URINE NEG (NEG); KETONE, URINE NEG (NEG); MUCUS URINE FEW /lpf (OCC); NITRITE,URINE NEG (NEG); SQUAMOUS EPITHELIAL CELL URINE 3 /hpf (0-5); URINE COLOR YELLOW (YELLW/STRAW)
[2017-10-30] MEDS ORDERED: METR-1 PO (18:44)
[2017-10-30 19:17] VITALS: BP 117/69
[2017-10-30 20:17] LABS: CHLAMYDIA PCR NOT DETECTED (NOT DETECT); NEISSERIA PCR NOT DETECTED (NOT DETECT)
== END 2017-10-30 19:18 | disposition home or self-care (01) ==
LOC: NEPD 15:59
DX: T19.2XXA Foreign body in vulva and vagina, initial encounter (principal); N76.0 Acute vaginitis; B96.89 Other specified bacterial agents as the cause of diseases classified elsewhere; D64.9 Anemia, unspecified; Z79.899 Other long term (current) drug therapy
CPT/HCPCS: 81001; 84703; 87210; 87491; 87591; 99284

== ENCOUNTER 2017-11-26 11:18 | Emergency (ER) | payer MEDICAID ==
[~2017-11-26 11:18] MED LIST changes: +METR-1 PO
[2017-11-26 11:20] VITALS: BP 125/73; PULSE 73; RESP 16; TEMP 98; O2SAT 100
--- NOTE | 2017-11-26 12:10 | PD ---
HPI Chief Complaint: Musculoskeletal Complaint Time Seen by Provider: 11:59 Travel History International Travel<30 days: No Contact w/Intl Traveler<30days: No Traveled to known affect area: No History of Present Illness HPI 21-year-old female presents to the emergency Department with complaint of left forearm after rolling off of her bed this morning and injuring her forearm. Denies paresthesias, loss of sensation, decreased range of motion to the affected extremity. Reports pain is worse with gripping and twisting the arm. Has not taken any medications or tried any treatments to alleviate the symptoms. Denies pain while at rest. Denies pain now. Pain is increased with gripping and twisting at the wrist. No known allergies. Denies significant past medical history. Has no other medical complaints. No other modifying factors or associated signs and symptoms. PFSH Past Medical History Anemia: Yes Immunizations Current: Yes ?: Not LMP: 11/19/17 Social History Alcohol Use: No Tobacco Use: No Substance Use: No Allergies-Medications (Allergen,Severity, Reaction): Coded Allergies: No Known Allergies (Unverified , 01/28/17) Reported Meds & Prescriptions Reported Meds & Active Scripts Active Flagyl (Metronidazole) 500 Mg Tab 500 Mg PO BID 7 Days Flexeril (Cyclobenzaprine HCl) 10 Mg Tab 10 Mg PO TID Ibuprofen 600 Mg Tab 600 Mg PO Q6H PRN Review of Systems Except as stated in HPI: all other systems reviewed are Neg Physical Exam Narrative GENERAL: Well-nourished, well-developed female patient, in no acute distress SKIN: Warm and dry. HEAD: Atraumatic. Normocephalic. EYES: Pupils equal and round. No scleral icterus. No injection or drainage. ENT: Mucosa pink and moist. Airway patent. NECK: Trachea midline. CARDIOVASCULAR: Regular rate. RESPIRATORY: No accessory muscle use. GASTROINTESTINAL: Flat. MUSCULOSKELETAL: Left forearm with tenderness on the patient; without erythema , edema, ecchymosis; without obvious deformity. Left upper extremity supple and non-tense with 2+ radial pulses and sensory intact without erythema or edema. No obvious deformities. No clubbing. No cyanosis. No edema. NEUROLOGICAL: Awake and alert. Oriented 3. No obvious cranial nerve deficits. Motor grossly within normal limits. Normal speech. PSYCHIATRIC: Appropriate mood and affect; insight and judgment normal. Data Data Last Documented VS Vital Signs Date Time Temp Pulse Resp B/P (MAP) Pulse Ox O2 Delivery O2 Flow Rate FiO2 11/26/17 11:20 98.0 73 16 125/73 (90) 100 Orders Orders Forearm (2vws) (11/26/17 11:59) MDM Medical Decision Making Medical Screen Exam Complete: Yes Emergency Medical Condition: Yes Medical Record Reviewed: Yes Differential Diagnosis Fracture, strain, injury Narrative Course 21-year-old female with left forearm injury. I offered the patient pain medication and she declined. Left forearm x-ray ordered. 1236: Left forearm x-ray with no acute findings. Findings on the x-ray discussed with the patient. Instructed patient to follow up if symptoms persist greater than 7-10 days. Patient verbalizes understanding and agreement. Instructed patient to follow up with primary care provider. Patient verbalizes understanding and agreement with treatment plan. Patient is medically cleared and stable for discharge. Discussed reasons to return to the emergency department. Patient agrees with treatment plan. The patients vital signs are stable and the patient is stable for outpatient follow-up and treatment. Patient discharged home, stable and in no acute distress. Diagnosis Primary Impression: Injury of left forearm Qualified Codes: S59.912A - Unspecified injury of left forearm, initial encounter Referrals: [facility] Primary Care Physician Patient Instructions: Arm Pain (ED), General Instructions Additional Instructions: Tylenol or ibuprofen as directed and as needed to reduce pain Rest, ice, compress, and elevate extremity to decrease pain and inflammation Avoid aggravating activity; increase activity as tolerated Follow-up with primary care provider Return to the emergency department immediately with worsening symptoms Med/Other Pt SpecificInfo: No Change to Meds, No Meds Exist/No RX given Disposition: 01 DISCHARGE HOME Condition: Stable Carline Harper Nov 26, 2017 12:10
--- NOTE | 2017-11-26 12:27 | RADRPT ---
EXAM DATE/TIME: 11/26/2017 12:15 [place] COMPARISON: No previous studies available for comparison. INDICATIONS : Fell Sunday pain mid shaft forear. MEDICAL HISTORY : Broken left wrist SURGICAL HISTORY : None. ENCOUNTER: Initial ACUITY: 3 weeks PAIN SCORE: 8/10 LOCATION: Left forearm FINDINGS: Two view examination of the left forearm demonstrates no evidence of fracture or dislocation. Bony m ineralization is normal. The soft tissue structures are intact. CONCLUSION: Negative for fracture or dislocation. Follow up in 7-10 days is suggested if symptoms persist. Michael Colon MD FACR on November 26, 2017 at 12:25 Board Certified Radiologist. This report was verified electronically.
== END 2017-11-26 12:56 | disposition home or self-care (01) ==
LOC: NEPK 11:18
DX: S59.912A Unspecified injury of left forearm, initial encounter (principal); D64.9 Anemia, unspecified; Z79.899 Other long term (current) drug therapy; W06.XXXA Fall from bed, initial encounter
CPT/HCPCS: 73090; 99283

== ENCOUNTER 2018-04-19 17:43 | Emergency (ER) | payer MEDICAID ==
[~2018-04-19] VITALS: Ht 167.6 cm; Wt 68.0 kg
[2018-04-19 17:48] VITALS: BP 117/50; PULSE 67; RESP 20; TEMP 98.5; O2SAT 99
[2018-04-19 19:45] VITALS: RESP 16; O2SAT 97
[2018-04-19] MEDS ORDERED: SODIUM CHLORIDE 0.9% FLUSH 10 ML FLUSH IV FLUSH PRN (19:45)
[2018-04-19] MEDS ORDERED: ALUMINUM/MAGNESIUM/SIMETH 30 ML CUP PO ONE (19:45)
[2018-04-19] MEDS ORDERED: ONDANSETRON ODT 4 MG TAB PO ONE (19:45)
[2018-04-19] MEDS ORDERED: LIDOCAINE VISCOUS 2% SOLN 15 ML UDC PO ONE (19:45)
[2018-04-19 20:07] LABS: AUTOMATED NEUTROPHIL # 8.3 TH/MM3 (1.8-7.7); BASOPHIL # 0.1 TH/MM3 (0-0.2); BASOPHIL % 0.5 % (0.0-2.0); EOSINOPHIL # 0.1 TH/MM3 (0-0.4); EOSINOPHIL % 0.9 % (0.0-4.0); HEMATOCRIT 42.1 % (35.0-46.0); HEMOGLOBIN 14.1 GM/DL (11.6-15.3); LYMPHOCYTE # 3.2 TH/MM3 (1.0-4.8); MEAN CORPUSCULAR HEMOGLOBIN 30.9 PG (27.0-34.0); MEAN CORPUSCULAR HGB CONC 33.6 % (32.0-36.0); MEAN PLATELET VOLUME 9.1 FL (7.0-11.0); MONOCYTE # 1.2 TH/MM3 (0-0.9); NEUT % 64.6 % (16.0-70.0); PLATELET COUNT 231 TH/MM3 (150-450); RED BLOOD COUNT 4.58 MIL/MM3 (4.00-5.30); RED CELL DISTRIBUTION WIDTH 13.9 % (11.6-17.2); WHITE BLOOD COUNT 12.8 TH/MM3 (4.0-11.0)
[2018-04-19 20:14] LABS: AMORPHOUS SEDIMENT, URINE FEW; BILIRUBIN, URINE NEG (NEG); BLOOD, URINE NEG (NEG); GLUCOSE,URINE NEG (NEG); KETONE, URINE NEG (NEG); NITRITE,URINE NEG (NEG); PH, URINE 7.5 (5.0-8.5); SQUAMOUS EPITHELIAL CELL URINE 6 /hpf (0-5); URINE COLOR YELLOW (YELLW/STRAW); URINE LEUKOCYTE ESTERASE LARGE (NEG)
[2018-04-19 20:31] LABS: ALT (GPT) 25 U/L (9-42)
[2018-04-19 20:34] LABS: ALKALINE PHOSPHATASE 66 U/L (45-117); TOTAL BILIRUBIN ADULT 0.4 MG/DL (0.2-1.0); TOTAL PROTEIN 7.2 GM/DL (6.4-8.2)
[2018-04-19 20:45] LABS: ALBUMIN 3.5 GM/DL (3.4-5.0); AST (GOT) 35 U/L (16-38); BLOOD UREA NITROGEN 14 MG/DL (7-18); CALCIUM 8.8 MG/DL (8.5-10.1); CHLORIDE 104 MEQ/L (98-107); CREATININE 0.76 MG/DL (0.50-1.00); GLOMERULAR FILTRATION RATE 97 ML/MIN (>89); GLUCOSE,RANDOM 63 MG/DL (74-106); SODIUM (NA) 139 MEQ/L (136-145)
--- NOTE | 2018-04-19 20:58 | PD ---
HPI Chief Complaint: GI Complaint Time Seen by Provider: 19:36 Travel History International Travel<30 days: No Contact w/Intl Traveler<30days: No Traveled to known affect area: No History of Present Illness HPI Patient is a 22-year-old female comes in after an episode of vomiting material, she says she thinks was blood. She says that she felt dizzy return to the bathroom and she vomited. She complains of having a sore throat for the past 3 or 4 days. She says that the vomiting happened just prior to coming in. She denies any abdominal pain. She denies fever chills. She reports feeling better now. Severity is mild to moderate. [facility] Past Medical History Anemia: Yes Immunizations Current: Yes ?: Not LMP: 04/03/18 Social History Alcohol Use: Yes (occ) Tobacco Use: No Substance Use: Yes (marijuana occ) Allergies-Medications (Allergen,Severity, Reaction): Coded Allergies: No Known Allergies (Unverified Adverse Reaction, Unknown, 04/19/18) Reported Meds & Prescriptions Reported Meds & Active Scripts Active No Active Prescriptions or Reported Medications Review of Systems Except as stated in HPI: all other systems reviewed are Neg General / Constitutional: No: Fever, Chills HENT: Positive: Sore Throat, No: Headaches, Lightheadedness Cardiovascular: No: Chest Pain or Discomfort Respiratory: No: Shortness of Breath Gastrointestinal: Positive: Nausea, Vomiting, No: Abdominal Pain Musculoskeletal: No: Myalgias, Edema Skin: No Rash, No Change in Pigmentation Neurologic: No: Weakness, Dizziness Physical Exam Narrative GENERAL: Awake and alert, no acute distress. SKIN: Focused skin assessment warm/dry. No wounds or signs of infection. HEAD: Atraumatic. Normocephalic. EYES: Pupils equal and round. No scleral icterus. ENT: No tonsillar swelling or exudates. Mucous membranes pink and moist. NECK: Trachea midline. No JVD. CARDIOVASCULAR: Regular rate and rhythm. No murmur appreciated. RESPIRATORY: No accessory muscle use. Clear to auscultation. Breath sounds equal bilaterally. GASTROINTESTINAL: Abdomen soft, non-tender, nondistended. MUSCULOSKELETAL: No obvious deformities. No clubbing. No cyanosis. No edema. NEUROLOGICAL: Awake and alert. No obvious cranial nerve deficits. Motor grossly within normal limits. Normal speech. PSYCHIATRIC: Appropriate mood and affect; insight and judgment normal. Data Data Last Documented VS Vital Signs Date Time Temp Pulse Resp B/P (MAP) Pulse Ox O2 Delivery O2 Flow Rate FiO2 04/19/18 19:45 16 97 Room Air 04/19/18 17:48 98.5 67 117/50 (72) Orders Orders Complete Blood Count With Diff (04/19/18 19:42) Comprehensive Metabolic Panel (04/19/18 19:42) Urinalysis - C+S If Indicated (04/19/18 19:42) Iv Access Insert/Monitor (04/19/18 19:42) Ecg Monitoring (04/19/18 19:42) Oximetry (04/19/18 19:42) Sodium Chloride 0.9% Flush (Ns Flush) (04/19/18 19:45) Al-Mag Hy-Si 40-40-4 Mg/Ml Liq (Mag-Al P (04/19/18 19:45) Lidocaine 2% Viscous (Xylocaine 2% Visco (04/19/18 19:45) Ed Urine Pregnancytest Poc (04/19/18 19:42) Ondansetron Odt (Zofran Odt) (04/19/18 19:45) Group A Rapid Strep Screen (04/19/18 19:42) Strep Culture (Group A) (04/19/18 19:54) Labs Laboratory Tests Test 04/19/18 19:45 White Blood Count 12.8 TH/MM3 Red Blood Count 4.58 MIL/MM3 Hemoglobin 14.1 GM/DL Hematocrit 42.1 % Mean Corpuscular Volume 92.0 FL Mean Corpuscular Hemoglobin 30.9 PG Mean Corpuscular Hemoglobin Concent 33.6 % Red Cell Distribution Width 13.9 % Platelet Count 231 TH/MM3 Mean Platelet Volume 9.1 FL Neutrophils (%) (Auto) 64.6 % Lymphocytes (%) (Auto) 25.0 % Monocytes (%) (Auto) 9.0 % Eosinophils (%) (Auto) 0.9 % Basophils (%) (Auto) 0.5 % Neutrophils # (Auto) 8.3 TH/MM3 Lymphocytes # (Auto) 3.2 TH/MM3 Monocytes # (Auto) 1.2 TH/MM3 Eosinophils # (Auto) 0.1 TH/MM3 Basophils # (Auto) 0.1 TH/MM3 CBC Comment DIFF FINAL Differential Comment Urine Color YELLOW Urine Turbidity CLOUDY Urine pH 7.5 Urine Specific [place] 1.015 Urine Protein NEG mg/dL Urine Glucose (UA) NEG mg/dL Urine Ketones NEG mg/dL Urine Occult Blood NEG Urine Nitrite NEG Urine Bilirubin NEG Urine Urobilinogen LESS THAN 2.0 MG/DL Urine Leukocyte Esterase LARGE Urine Squamous Epithelial Cells 6 /hpf Urine Amorphous Sediment FEW Microscopic Urinalysis Comment CULT NOT INDICATED Blood Urea Nitrogen 14 MG/DL Creatinine 0.76 MG/DL Random Glucose 63 MG/DL Total Protein 7.2 GM/DL Albumin 3.5 GM/DL Calcium Level 8.8 MG/DL Alkaline Phosphatase 66 U/L Aspartate Amino Transf (AST/SGOT) 35 U/L Alanine Aminotransferase (ALT/SGPT) 25 U/L Total Bilirubin 0.4 MG/DL Sodium Level 139 MEQ/L Potassium Level 4.4 MEQ/L Chloride Level 104 MEQ/L Carbon Dioxide Level 27.0 MEQ/L Anion Gap 8 MEQ/L Estimat Glomerular Filtration Rate 97 ML/MIN [facility] Medical Decision Making Medical Screen Exam Complete: Yes Emergency Medical Condition: Yes Medical Record Reviewed: Yes Differential Diagnosis Viral illness versus pharyngitis versus gastritis versus gastroenteritis Narrative Course Patient is a 22-year-old female comes in complaining of an episode of vomiting which she thinks might have been blood. Exam shows no acute abnormalities. Labs show no acute abnormalities other than a white count of 12.8. Hemoglobin is 14. I believe it is unlikely that patient vomited blood, if she did maybe it was just some irritation. She is able to drink without vomiting now. She is advised to drink plenty fluids. Advised to eat a bland diet. Advised follow -up with a primary care doctor. Advised return to the ED as needed for any worsening symptoms. She is very anxious to leave she says she needs to go to work. Diagnosis Primary Impression: Gastritis Qualified Codes: K29.70 - Gastritis, unspecified, without bleeding Referrals: [facility] Patient Instructions: Gastritis (ED), General Instructions Additional Instructions: Drink plenty of fluids. Eat a bland diet. Follow-up with a primary care doctor. Return to the ED as needed for any worsening symptoms. Scripts No Active Prescriptions or Reported Meds Disposition: 01 DISCHARGE HOME Condition: Stable Nola Morris MD Apr 19, 2018 20:58
== END 2018-04-19 21:07 | disposition home or self-care (01) ==
LOC: NEPD 17:43
DX: K29.70 Gastritis, unspecified, without bleeding (principal); J02.9 Acute pharyngitis, unspecified; F12.90 Cannabis use, unspecified, uncomplicated
CPT/HCPCS: 80053; 81001; 84703; 85025; 87081; 87880; 99283